=== PATIENT | male | born 1955 | race Caucasian/White ===

== ENCOUNTER 2022-09-16 11:12 | Observation (INO) ==
[2022-09-16] MEDS ORDERED: Ondansetron 4 mg VIAL 2 MG/ML 2 ml VIAL IV ONE (11:57)
[2022-09-16] MEDS ORDERED: NS 0.9% 1000 ml BAG 1,000 ML IV ONE (11:57)
[2022-09-16] MEDS ORDERED: Pantoprazole VIAL 40 MG VIAL IV ONE (11:58)
[2022-09-16 12:38] LABS: ABS Basophils 0.1 10^3/uL (0.0-0.1); ABS Lymphocytes 0.7 10^3/uL (1.0-4.8); ABS Monocytes 0.6 10^3/uL (0.0-1.1); ABS Neutrophils 13.5 10^3/uL (1.5-7.6); Hematocrit 42.7 % (38-53); Hemoglobin 14.9 g/dL (13.2-16.3); Lymphocyte % 4.5 %; Mean Corpuscular Hemoglobin 31.1 pg (27-33); Mean Corpuscular Hgb Conc 34.8 g/dL (31-36); Mean Corpuscular Volume 89.4 fL (80-97); Mean Platelet Volume 8.9 fL (7.5-11.2); Platelet Count 234 10^3/uL (150-450); Red Blood Count 4.78 10^6/uL (4.06-5.63); Red Cell Distribution Width 12.7 % (12-17); White Blood Count 14.8 10^3/uL (3.6-10.2)
[2022-09-16 12:54] LABS: Albumin 4.9 g/dL (3.2-5.2); Albumin/Globulin Ratio 1.8 (1-3); Calcium 9.7 mg/dL (8.6-10.3); Creatinine, Serum 0.84 mg/dL (0.67-1.17); Globulin 2.8 g/dL (2-4); Magnesium 1.6 mg/dL (1.9-2.7); Phosphorus 1.2 mg/dL (2.5-5.0); Potassium 3.8 mmol/L (3.5-5.0); Total Protein 7.7 g/dL (6.4-8.9); eGFR CKD-EPI 96.2 (>60)
[2022-09-16] MEDS ORDERED: Magnesium Sulfate 2 gm BAG 2 GM/50 ML BAG IVPB ONE (13:07)
[2022-09-16 14:03] LABS: High Sensitivity Troponin 1 Hr 89 pg/mL (<20)
[2022-09-16] MEDS ORDERED: Iohexol 350 (CONTRAST) 500 ML MDV IV ONE (14:53)
[2022-09-16] MEDS ORDERED: fentaNYL 100 mcg/2 ml 50 MCG/ML VIAL ONE ×4 (17:05→19:12)
[2022-09-16] MEDS ORDERED: Rocuronium 50 mg VIAL 10 mg/ml 5 ml VIAL (50 mg) ONE (17:05)
[2022-09-16] MEDS ORDERED: Midazolam 2 mg/2 ml VIAL 1 mg/ml 2 ml VIAL (2 mg) ONE (17:05)
[2022-09-16] MEDS ORDERED: Propofol 10 MG/ML 20 ML BTL ONE (17:05)
[2022-09-16] MEDS ORDERED: Lidocaine 2% PF 5 ML VIAL ONE (17:05)
[2022-09-16] MEDS ORDERED: Bupivacaine 0.25% w/EPI 10 ML SDV ONE (17:10)
[2022-09-16] MEDS ORDERED: metroNIDAZOLE IV 500 MG/100ML 500 MG/100 ML BAG ONE (17:22)
[2022-09-16] MEDS ORDERED: ceFAZolin 2 GM PREMIX 2 GM/50 ML BAG ONE (17:22)
[2022-09-16 17:57] LABS: High Sensitivity Troponin 3 Hr 520 pg/mL (<20)
[2022-09-16] MEDS ORDERED: Phenylephrine 40 mcg/mL 10mL (400mcg) SYRINGE ONE (18:07)
[2022-09-16] MEDS ORDERED: Phenylephrine IV 10 MG/ML 1 ml VIAL ONE (18:10)
[2022-09-16] MEDS ORDERED: Ondansetron 4 mg VIAL 2 MG/ML 2 ml VIAL ONE ×2 (18:15→18:59)
[2022-09-16] MEDS ORDERED: Dexamethasone IV 4 MG/ML VIAL 1 ml VIAL ONE (18:15)
[2022-09-16] MEDS ORDERED: Acetaminophen IV 1 GM/100ML 1,000 MG/100 ML BAG IV ONE (18:20)
[2022-09-16] MEDS ORDERED: Naloxone 0.4 mg VIAL 0.4 mg/ml 1 ml VIAL IV PRN (19:07)
[2022-09-16] MEDS ORDERED: Ondansetron 4 mg VIAL 2 MG/ML 2 ml VIAL IV PRN (19:07)
[2022-09-16] MEDS ORDERED: fentaNYL 100 mcg/2 ml 50 MCG/ML VIAL IV PRN (19:07)
[2022-09-16] MEDS ORDERED: Metoprolol Tartrate 5 mg VIAL 5 ml VIAL (1 mg/ml) ONE (19:29)
[2022-09-16] MEDS ORDERED: Metoprolol Tartrate 5 mg VIAL 5 ml VIAL (1 mg/ml) IV ONE (20:00)
[2022-09-16] MEDS: oxyCODONE/Acetamin 5/325 mg TAB PO PRN (23:00)
[2022-09-17] MEDS: Ondansetron 4 mg VIAL 2 MG/ML 2 ml VIAL IV PRN ×2 (05:28→12:24)
[2022-09-17] MEDS: oxyCODONE/Acetamin 5/325 mg TAB PO PRN ×3 (05:28→17:34)
[2022-09-17 06:27] LABS: Hematocrit 44.2 % (38-53); Hemoglobin 15.5 g/dL (13.2-16.3); Mean Corpuscular Hemoglobin 31.4 pg (27-33); Mean Corpuscular Volume 89.9 fL (80-97); Mean Platelet Volume 8.7 fL (7.5-11.2); Platelet Count 277 10^3/uL (150-450); Red Blood Count 4.92 10^6/uL (4.06-5.63); Red Cell Distribution Width 13.1 % (12-17); White Blood Count 15.3 10^3/uL (3.6-10.2)
[2022-09-17 06:47] LABS: Calcium 9.4 mg/dL (8.6-10.3); Creatinine, Serum 1.02 mg/dL (0.67-1.17); Potassium 4.1 mmol/L (3.5-5.0); eGFR CKD-EPI 81.1 (>60)
[2022-09-17 07:23] LABS: ABS Lymphocytes 1.3 10^3/uL (1.0-4.8); ABS Monocytes 1.6 10^3/uL (0.0-1.1); ABS Neutrophils 12.4 10^3/uL (1.5-7.6); ABS Nucleated RBC 0.02 10^3/ul; Lymphocyte % 8.5 %; Nucleated Red Blood Cells % 0.1 /100 WBC (0.0-0.4)
[2022-09-17] MEDS ORDERED: Midazolam 10 mg/10 ml VIAL 1 mg/ml 10 ml VIAL (10 mg) IV SLOW PU ONE (08:55)
[2022-09-17] MEDS ORDERED: fentaNYL 100 mcg/2 ml 50 MCG/ML VIAL IV SLOW PU ONE (08:55)
[2022-09-17] MEDS: NS 0.9% 1000 ml BAG 1,000 ML IV SCH ×2 (10:46→23:39)
[2022-09-17] MEDS: Heparin 5000 UNITS/ML 1 mL VIAL SUBCUT SCH ×3 (10:47→21:50)
[2022-09-17] MEDS ORDERED: oxyCODONE/Acetamin 5/325 mg TAB ONE (12:48)
[2022-09-17] MEDS ORDERED: Midazolam 5 mg/5 ml VIAL 1 mg/ml 5 ml VIAL (5 mg) ONE (13:04)
[2022-09-17] MEDS ORDERED: fentaNYL 100 mcg/2 ml 50 MCG/ML VIAL ONE (13:04)
[2022-09-17] MEDS ORDERED: Heparin 1,000 UNIT/ML 10 ml (10,000 UNITS) CATHLAB/DIALYSIS ONE (13:04)
[2022-09-17] MEDS ORDERED: VERAPAMIL 2.5 MG/ML 2 ML VIAL ** 5 mg/2 ml ONE (13:04)
[2022-09-17] MEDS ORDERED: nitroGLYCERIN DRIP 25,000 MCG/250 ML BTL ONE (13:05)
[2022-09-17] MEDS ORDERED: Heparin 2 UNITS/ML 1000 mls 2,000 ML IV ONE (13:05)
[2022-09-17] MEDS ORDERED: Lidocaine 1% MPF 5 ML VIAL ONE (13:05)
[2022-09-17] MEDS ORDERED: Iohexol 350 (CONTRAST) 200 ML MDV IV ONE (13:05)
[2022-09-17] MEDS ORDERED: Iohexol 350 (CONTRAST) 100 ML PAK IV ONE (13:05)
[2022-09-17] MEDS: Buprenorp/Nalox 8-2 MG FILM SL SCH ×2 (14:36→21:49)
[2022-09-17] MEDS ORDERED: NS 0.9% 1000 ml BAG 1,000 ML IV SCH (15:15)
[2022-09-18] MEDS ORDERED: NS 0.9% 500 ml BAG 500 ML IV ONE ×2 (00:14→02:02)
[2022-09-18] MEDS ORDERED: NS 0.9% 1000 ml BAG 1,000 ML IV SCH (02:02)
[2022-09-18] MEDS: oxyCODONE/Acetamin 5/325 mg TAB PO PRN ×3 (04:11→12:22)
[2022-09-18] MEDS: Heparin 5000 UNITS/ML 1 mL VIAL SUBCUT SCH ×2 (05:43→12:22)
[2022-09-18] MEDS: Buprenorp/Nalox 8-2 MG FILM SL SCH (08:14)
[2022-09-18 12:45] LABS: HDL Cholesterol 60.7 mg/dL; Magnesium 2.2 mg/dL (1.9-2.7)
[2022-09-18 14:50] VITALS: BP 123/56
== END 2022-09-18 14:53 | disposition home or self-care (01) ==
LOC: ED 11:12 → OR 17:09 → MEDTELE 20:49 → SUATTDRO 20:49 → INTOOBSV 20:49 → MEDTELE 09-17 19:27
PROVIDERS: ADMIT Surgery; ATTEND Internal Medicine

== ENCOUNTER 2023-03-13 14:07 | Observation (INO) ==
[2023-03-13 14:51] LABS: INR 1.15 (0.83-1.13)
[2023-03-13 15:01] LABS: Hematocrit 49.7 % (38-53); Hemoglobin 17.4 g/dL (13.2-16.3); Mean Corpuscular Hemoglobin 31.3 pg (27-33); Mean Corpuscular Hgb Conc 35.1 g/dL (31-36); Mean Platelet Volume 8.4 fL (7.5-11.2); Platelet Count 320 10^3/uL (150-450); Red Blood Count 5.58 10^6/uL (4.06-5.63); Red Cell Distribution Width 12.9 % (12-17); White Blood Count 18.2 10^3/uL (3.6-10.2)
[2023-03-13 15:14] LABS: Albumin/Globulin Ratio 1.4 (1-3); Calcium 10.1 mg/dL (8.6-10.3); Creatinine, Serum 0.93 mg/dL (0.67-1.17); Globulin 3.5 g/dL (2-4); Potassium 3.5 mmol/L (3.5-5.0); Total Bilirubin 1.4 mg/dL (0.2-1.0); Total Protein 8.5 g/dL (6.4-8.9); eGFR CKD-EPI 90.6 (>60)
[2023-03-13 15:30] LABS: ABS Lymphocytes 1.2 10^3/uL (1.0-4.8); ABS Monocytes 1.7 10^3/uL (0.0-1.1); ABS Neutrophils 15.3 10^3/uL (1.5-7.6); ABS Nucleated RBC 0.02 10^3/ul; Lymphocyte % 6.7 %; Nucleated Red Blood Cells % 0.1 %/100WBC (0.0-0.8)
[2023-03-13] MEDS ORDERED: Ondansetron 4 mg VIAL 2 MG/ML 2 ml VIAL IV ONE (15:32)
[2023-03-13] MEDS ORDERED: Lactated Ringers 1000 ml BAG 1,000 ML IV ONE ×3 (15:34→20:30)
[2023-03-13 15:59] LABS: Direct Bilirubin 0.2 mg/dL (0.03-0.18); Indirect Bilirubin 1.2 mg/dL (0.3-1.0)
[2023-03-13 16:12] LABS: High Sensitivity Troponin 1 Hr 236 pg/mL (<20)
[2023-03-13] MEDS ORDERED: Heparin DRIP 25,000 UNITS BAG 25,000 UNITS/250 ML BAG IV SCH (16:45)
[2023-03-13] MEDS ORDERED: Nitroglycerin 0.3 mg TAB SL ONE ×3 (16:52→21:13)
[2023-03-13] MEDS ORDERED: Morphine 2 MG/ML SYRINGE IV ONE ×2 (17:20→22:34)
[2023-03-13] MEDS ORDERED: Pantoprazole VIAL 40 MG VIAL IV ONE (17:21)
[2023-03-13] MEDS ORDERED: Pantoprazole VIAL 40 MG VIAL ONE (17:23)
[2023-03-13] MEDS ORDERED: Morphine 2 MG/ML SYRINGE ONE (17:24)
[2023-03-13] MEDS: Heparin 5000 UNITS/ML 1 mL VIAL IV SCH (17:43)
[2023-03-13] MEDS ORDERED: Iohexol 350 (CONTRAST) 500 ML MDV IV ONE (17:50)
[2023-03-13] MEDS ORDERED: Morphine 4 MG/ML VIAL (1 ml) IV ONE (18:33)
[2023-03-13 19:14] LABS: Urine Appearance Clear; Urine Bilirubin Negative (Negative); Urine Blood 2+ (Negative); Urine Color Yellow; Urine Glucose 1+(50 mg/dL) (Negative); Urine Ketones 1+ (Negative); Urine Nitrite Negative (Negative); Urine Protein 3+(>=500 mg/dL) (Negative); Urine Specific Gravity 1.029 (1.002-1.030); Urine Urobilinogen Negative (Negative)
[2023-03-13 19:16] LABS: Urine Bacteria Absent (Absent); Urine Red Blood Cell 3+(>10/hpf) (Absent); Urine White Blood Cell Trace(0-5/hpf) (Absent)
[2023-03-13] MEDS ORDERED: cefTRIAXone 1 gm/50 mL D5W 1 GM/50 ML BAG IV SCH ×2 (20:30→22:00)
[2023-03-13 21:20] LABS: Creatinine, Serum 0.81 mg/dL (0.67-1.17); eGFR CKD-EPI 97.2 (>60)
[2023-03-13] MEDS: Ondansetron 4 mg VIAL 2 MG/ML 2 ml VIAL IV PRN (21:29)
[2023-03-14] MEDS ORDERED: Heparin 5000 UNITS/ML 1 mL VIAL ONE (00:51)
[2023-03-14] MEDS: Heparin 5000 UNITS/ML 1 mL VIAL IV SCH (00:53)
[2023-03-14] MEDS ORDERED: Potassium Chlor 20 meq TAB.ER PO ONE (01:18)
[2023-03-14] MEDS ORDERED: D5LR 1000 ml BAG 1,000 ML IV SCH (02:00)
[2023-03-14] MEDS ORDERED: HYDROmorphone 0.5 MG/0.5 ML SYRINGE IV SLOW PU PRN (02:20)
[2023-03-14] MEDS: Ondansetron 4 mg VIAL 2 MG/ML 2 ml VIAL IV PRN ×3 (02:45→20:12)
[2023-03-14] MEDS: Morphine 2 MG/ML SYRINGE IV PRN ×2 (02:45→12:36)
[2023-03-14] MEDS: Acetaminophen IV 1 GM/100ML 1,000 MG/100 ML BAG IV ONE ×2 (02:47→04:24)
[2023-03-14 07:20] LABS: ABS Lymphocytes 3.3 10^3/uL (1.0-4.8); ABS Monocytes 1.5 10^3/uL (0.0-1.1); ABS Neutrophils 8.1 10^3/uL (1.5-7.6); Hematocrit 39.5 % (38-53); Hemoglobin 13.6 g/dL (13.2-16.3); Lymphocyte % 25.6 %; Mean Corpuscular Hemoglobin 30.8 pg (27-33); Mean Corpuscular Hgb Conc 34.3 g/dL (31-36); Mean Corpuscular Volume 89.9 fL (80-97); Mean Platelet Volume 8.3 fL (7.5-11.2); Platelet Count 245 10^3/uL (150-450); Red Cell Distribution Width 13.1 % (12-17)
[2023-03-14 07:41] LABS: Calcium 8.6 mg/dL (8.6-10.3); Creatinine, Serum 0.88 mg/dL (0.67-1.17); Potassium 3.9 mmol/L (3.5-5.0); eGFR CKD-EPI 94.8 (>60)
[2023-03-14] MEDS ORDERED: Pravastatin 40 mg TAB (NF) PO SCH (09:00)
[2023-03-14] MEDS: Prochlorperazine 5 mg/ml 2 ml VIAL (10 mg) IV PRN (12:36)
[2023-03-14] MEDS: Pantoprazole VIAL 40 MG VIAL IV SCH ×2 (12:36→20:13)
[2023-03-14] MEDS: Buprenorp/Nalox 8-2 MG FILM SL SCH (17:17)
[2023-03-14] MEDS ORDERED: Pantoprazole VIAL 40 MG VIAL IV SCH (21:00)
[2023-03-14] MEDS ORDERED: cefTRIAXone 1 gm/50 mL D5W 1 GM/50 ML BAG IV SCH (22:00)
[2023-03-15] MEDS: Prochlorperazine 5 mg/ml 2 ml VIAL (10 mg) IV PRN (01:44)
[2023-03-15 06:27] LABS: ABS Basophils 0.1 10^3/uL (0.0-0.1); ABS Eosinophils 0.1 10^3/uL (0.0-0.5); ABS Lymphocytes 3.3 10^3/uL (1.0-4.8); ABS Neutrophils 4.2 10^3/uL (1.5-7.6); ABS Nucleated RBC 0.01 10^3/ul; Eosinophil % 0.8 %; Hemoglobin 13.4 g/dL (13.2-16.3); Lymphocyte % 38.3 %; Mean Corpuscular Hemoglobin 31.6 pg (27-33); Mean Corpuscular Hgb Conc 35.2 g/dL (31-36); Mean Corpuscular Volume 89.9 fL (80-97); Mean Platelet Volume 8.2 fL (7.5-11.2); Nucleated Red Blood Cells % 0.1 %/100WBC (0.0-0.8); Platelet Count 220 10^3/uL (150-450); Red Blood Count 4.23 10^6/uL (4.06-5.63); White Blood Count 8.7 10^3/uL (3.6-10.2)
[2023-03-15 06:44] LABS: C Reactive Protein 2.85 mg/L (<8.01); Creatinine, Serum 0.92 mg/dL (0.67-1.17); eGFR CKD-EPI 91.7 (>60)
[2023-03-15] MEDS ORDERED: Enoxaparin 40 MG/0.4 ML SYR SUBCUT SCH (09:00)
[2023-03-15] MEDS: Ondansetron 4 mg VIAL 2 MG/ML 2 ml VIAL IV PRN (09:59)
[2023-03-15] MEDS: Buprenorp/Nalox 8-2 MG FILM SL SCH (09:59)
[2023-03-15] MEDS: Pantoprazole VIAL 40 MG VIAL IV SCH (09:59)
[2023-03-15 10:03] LABS: Erythrocyte Sed Rate 5 mm/Hr (0-19)
[2023-03-15 14:35] VITALS: BP 113/63
== END 2023-03-15 14:56 ==
LOC: EDHOLD 14:07 → ED 14:07 → SUATTDRO 19:33 → MEDTELE 03-14 00:27
PROVIDERS: ADMIT Internal Medicine; ATTEND Student in an Organized Health Care Education/Training Program

== ENCOUNTER 2023-08-30 04:25 | Observation (INO) ==
[2023-08-30] MEDS: Morphine 4 MG/ML VIAL (1 ml) IV ONE (05:00)
[2023-08-30] MEDS: Droperidol 5 MG/2 ML 2 ML VIAL IV ONE ×2 (05:07→07:13)
[2023-08-30] MEDS: Lactated Ringers 1000 ml BAG 1,000 ML IV ONE (05:08)
[2023-08-30 05:30] LABS: ABS Lymphocytes 1.8 10^3/uL (1.0-4.8); ABS Monocytes 1.5 10^3/uL (0.0-1.1); ABS Nucleated RBC 0.02 10^3/ul; Eosinophil % 0.1 %; Hematocrit 46.3 % (38-53); Hemoglobin 16.4 g/dL (13.2-16.3); Lymphocyte % 11.7 %; Mean Corpuscular Hemoglobin 32.1 pg (27-33); Mean Corpuscular Hgb Conc 35.5 g/dL (31-36); Mean Corpuscular Volume 90.4 fL (80-97); Mean Platelet Volume 8.4 fL (7.5-11.2); Nucleated Red Blood Cells % 0.1 %/100WBC (0.0-0.8); Platelet Count 317 10^3/uL (150-450); Red Blood Count 5.12 10^6/uL (4.06-5.63); White Blood Count 15.3 10^3/uL (3.6-10.2)
[2023-08-30 05:45] LABS: Albumin 4.8 g/dL (3.2-5.2); Albumin/Globulin Ratio 1.5 (1-3); C Reactive Protein 1.34 mg/L (<8.01); Calcium 10.1 mg/dL (8.6-10.3); Creatinine, Serum 0.93 mg/dL (0.67-1.17); Globulin 3.1 g/dL (2-4); Potassium 3.5 mmol/L (3.5-5.0); Total Bilirubin 2.3 mg/dL (0.2-1.0); Total Protein 7.9 g/dL (6.4-8.9)
[2023-08-30 07:17] LABS: Urine Appearance Clear; Urine Bilirubin Negative (Negative); Urine Blood 2+ (Negative); Urine Color Yellow; Urine Glucose Negative (Negative); Urine Ketones 2+ (Negative); Urine Nitrite Negative (Negative); Urine Protein 2+ (>=100 mg/dL) (Negative); Urine Specific Gravity 1.021 (1.002-1.030); Urine Urobilinogen Negative (Negative)
[2023-08-30 07:25] LABS: Urine Bacteria Absent /HPF (Absent); Urine Red Blood Cell 3+(>10/hpf) /HPF (0-Trace); Urine White Blood Cell Trace(0-5/hpf) /HPF (0-Trace)
[2023-08-30] MEDS: Prochlorperazine 5 mg/ml 2 ml VIAL (10 mg) IV ONE (08:18)
[2023-08-30] MEDS: Ondansetron 4 mg VIAL 2 MG/ML 2 ml VIAL IV PRN (11:18)
[2023-08-30] MEDS: Iohexol 350 (CONTRAST) 500 ML MDV IV ONE (12:34)
[2023-08-30] MEDS: Pantoprazole VIAL 40 MG VIAL IV SCH (13:28)
[2023-08-30] MEDS: Al Hydrox/Mg Hydrox/Simet LIQ 30 ML UDC PO ONE (13:29)
[2023-08-30] MEDS: Buprenorp/Nalox 8-2 MG FILM SL SCH (13:29)
[2023-08-30] MEDS: NS 0.9% 1000 ml BAG 1,000 ML IV SCH (17:49)
[2023-08-30] MEDS: Enoxaparin 40 MG/0.4 ML SYR SUBCUT SCH (17:50)
[2023-08-31 06:05] LABS: ABS Eosinophils 0.1 10^3/uL (0.0-0.5); ABS Lymphocytes 4.1 10^3/uL (1.0-4.8); ABS Monocytes 0.9 10^3/uL (0.0-1.1); ABS Neutrophils 3.7 10^3/uL (1.5-7.6); ABS Nucleated RBC 0.01 10^3/ul; Eosinophil % 0.8 %; Hematocrit 37.5 % (38-53); Hemoglobin 13.1 g/dL (13.2-16.3); Lymphocyte % 46.4 %; Mean Corpuscular Hemoglobin 31.7 pg (27-33); Mean Corpuscular Hgb Conc 34.9 g/dL (31-36); Mean Corpuscular Volume 90.9 fL (80-97); Mean Platelet Volume 8.2 fL (7.5-11.2); Nucleated Red Blood Cells % 0.1 %/100WBC (0.0-0.8); Platelet Count 232 10^3/uL (150-450); Red Blood Count 4.12 10^6/uL (4.06-5.63); Red Cell Distribution Width 12.9 % (12-17); White Blood Count 8.8 10^3/uL (3.6-10.2)
[2023-08-31 06:20] LABS: Calcium 8.3 mg/dL (8.6-10.3); Creatinine, Serum 0.9 mg/dL (0.67-1.17); Magnesium 2.3 mg/dL (1.9-2.7); Potassium 3.8 mmol/L (3.5-5.0); eGFR CKD-EPI 93.6 (>60)
[2023-08-31] MEDS: Ondansetron 4 mg VIAL 2 MG/ML 2 ml VIAL IV PRN (10:06)
[2023-08-31] MEDS: Al Hydrox/Mg Hydrox/Simet LIQ 30 ML UDC PO ONE (11:59)
[2023-08-31] MEDS: D5LR 1000 ml BAG 1,000 ML IV SCH (15:39)
[2023-08-31] MEDS: Metoclopramide 5 MG/ML VIAL (10 mg) IV PRN (15:39)
[2023-08-31] MEDS ORDERED: Midazolam 10 mg/10 ml VIAL 1 mg/ml 10 ml VIAL (10 mg) ONE (18:01)
[2023-08-31] MEDS ORDERED: fentaNYL 100 mcg/2 ml 50 MCG/ML VIAL ONE (18:01)
[2023-09-01 06:34] LABS: ABS Eosinophils 0.1 10^3/uL (0.0-0.5); ABS Lymphocytes 3.2 10^3/uL (1.0-4.8); ABS Monocytes 0.9 10^3/uL (0.0-1.1); ABS Nucleated RBC 0.01 10^3/ul; Hematocrit 36.1 % (38-53); Lymphocyte % 34.6 %; Mean Corpuscular Hemoglobin 32.4 pg (27-33); Mean Corpuscular Hgb Conc 35.9 g/dL (31-36); Mean Corpuscular Volume 90.3 fL (80-97); Mean Platelet Volume 8.2 fL (7.5-11.2); Nucleated Red Blood Cells % 0.1 %/100WBC (0.0-0.8); Platelet Count 215 10^3/uL (150-450); Red Cell Distribution Width 12.6 % (12-17); White Blood Count 9.2 10^3/uL (3.6-10.2)
[2023-09-01 07:18] LABS: Calcium 8.4 mg/dL (8.6-10.3); Creatinine, Serum 0.74 mg/dL (0.67-1.17); Potassium 3.3 mmol/L (3.5-5.0); eGFR CKD-EPI 99.3 (>60)
[2023-09-01] MEDS: fentaNYL 100 mcg/2 ml 50 MCG/ML VIAL IV SLOW PU ONE (08:55)
[2023-09-01] MEDS: Midazolam 10 mg/10 ml VIAL 1 mg/ml 10 ml VIAL (10 mg) IV SLOW PU ONE (08:55)
[2023-09-01 13:34] VITALS: BP 136/55
== END 2023-09-01 14:40 | disposition home or self-care (01) ==
LOC: EDHOLD 04:25 → ED 04:25 → MED 13:58
PROVIDERS: ADMIT Student in an Organized Health Care Education/Training Program; ATTEND Student in an Organized Health Care Education/Training Program